=== PATIENT | male | born 1945 | race Caucasian/White ===

== ENCOUNTER 2025-05-02 07:32 | Outpatient (AMB) | payer MEDICARE, MEDICAID, SELFPAY ==
[2025-05-02 07:35] VITALS: BMI 27.6
--- NOTE | 2025-05-02 07:35 | A.PHYSOV ---
Vital Signs 05/02/25 07:35 Height 5 ft 5 in Weight 166 lb BMI 27.6 Intake Visit Reasons: Follow up after injection 01/20/25 Intake Note: Patient is a 79 year old male in office today for a follow up after L5-S1 Interlaminar epidural injection 01/20/25. [place] Required: No Allergies No Known Allergies Allergy (Verified 05/02/25 07:38) HPI Comments Details: History of Present Illness The patient is a 79 year old male presenting for a follow-up visit for chronic lower back pain and bilateral lumbar radiculitis. He has been responding to lumbar epidural injections, with his most recent being an L5-S1 injection on January 20, 2025. He previously experienced 70% improvement with these injections and this has been pretty consistent response. Pain has been slowly returning. He is ready for another injection. Pain continues to be reported with standing and reduced with sitting down. He ambulates with a single-point cane. He reports positive shopping cart? sign. A lumbar sacral spine MRI from July 30, 2021, revealed various degrees of neuroforaminal stenosis with associated nerve root compression. The most pertinent findings were compression of the right L4 nerve root and the left L5 nerve root at the L5-S1 level. The patient's medication history includes daily aspirin. Pain Description - Location: Lower back. - Radiation: Bilateral lumbar radiculitis is reported. Results - Lumbar Sacral Spine MRI (July 30, 2021): Showed various degrees of neuroforaminal stenosis with associated nerve root compression, including compression of the right L4 nerve root and the left L5 nerve root at the L5-S1 level. [facility] Medical History (Updated 05/02/25 @ 07:46 by Jose A Mccabe DO) Lumbar radiculitis Spinal stenosis, lumbar region with neurogenic claudication Surgical History History of back surgery S/P CABG x 3 Social History Alcohol intake: current Alcohol intake frequency: holidays/special occasions only Patient Tobacco Use Status: Never used Tobacco Review of Systems Narrative Review of Systems - Musculoskeletal: Reports chronic lower back pain with bilateral radiculopathy. Denies change in bowel bladder habits. Denies fever or chills. Denies uncontrolled depression or suicidal ideation. Denies progressive weakness. Physical Exam Exam Exam: Physical Exam Patient appears to be in no acute distress. He ambulated without antalgia. Heel walk and toe walk were not tested. He ambulates with a single-point cane. Neurological examination reveals mild weakness of the right EHL. Patient demonstrated no upper motor neuron signs. Lumbar range of motion was severely restricted in extension. Vital Signs: BMI result Body Mass Index 27.6 Assessment & Plan Assessment & Plan (1) Spinal stenosis, lumbar region with neurogenic claudication: Code(s): M48.062 - Spinal stenosis, lumbar region with neurogenic claudication Category: Medical (2) Lumbar radiculitis: Code(s): M54.16 - Radiculopathy, lumbar region Category: Medical Plan Pain Management - Analgesia: The patient notes that lumbar epidural injections help for a while and has previously reported 70% improvement from them. - The patient uses aspirin daily but denies use of ibuprofen. Plan Patient was informed and verbally consented to the use of an ambient scribe for clinic note documentation during this visit. 1. Chronic Lower Back Pain With Lumbar Radiculitis The patient reports temporary relief from lumbar epidural injections, and he has previously had a 70% improvement. Given his positive response, a repeat L5-S1 epidural injection will be scheduled. The patient takes daily aspirin and will need to discontinue it for at least seven days prior to the procedure. The procedure will be scheduled after the , and office staff will contact the patient to arrange the appointment. Discussion Notes I discussed the patient's response to his most recent L5-S1 epidural injection from January 20, 2025, and he reported that it provides temporary relief. Based on his history of positive response, including a prior 70% improvement, we will proceed with a repeat L5-S1 epidural injection. I advised the patient that he must stop taking his daily aspirin for at least seven days before the procedure. Due to the hold on aspirin and the upcoming holidays, we agreed to schedule the procedure after the . I informed the patient that my staff will call him to schedule the appointment. Patient Instructions - You will be scheduled for another epidural injection in your lower back (L5-S1). - You must stop taking your aspirin for at least 7 days before the procedure. - Our office will call you to schedule this procedure for a date after the New Year. Coding Level of Care Code Est Pt Level 4 (23839) Add On Problem Visit Only Diagnoses Spinal stenosis, lumbar region with neurogenic claudication M48.062 Lumbar radiculitis M54.16
--- OUTSIDE RECORDS SUMMARY | 2025-05-02 07:35 | XMS_ITS ---
Author Name [facility] Organization Unknown Care Team Organization Name Specialty Phone Email Start Date End Da te [facility] 01/03/2025 [facility] Pino Gibbons [facility] 09/21/2022 01/03/20 [facility] Hugo Marquez Primary [facility] 07/22/2022 01/03/2024 [facility] Gilberto Dior Primary [facility] 03/24/202212/15
--- OUTSIDE RECORDS SUMMARY | 2025-05-02 07:35 | XMS_ITS | Clinical Summary ---
Author Organization [facility] [address] [facility] [address] Address [address] [place] [address] Phone Care Team Providers Care Journeyman Pressman Name Role Phone Osman Marquez MD Primary Care Provider [phone] Allergies No known active allergies Medications MEN'S MULTI-VITAMIN ORAL Take 1 tablet by mouth 1 (one) time each day. Active omeprazole magnesium (PRILOSEC OTC ORAL) Take 1 tablet by mouth 1 (one) time each day. Active acetaminophen (TYLENOL) 325 mg tablet Take 2 tablets (650 mg total) by mouth every 6 (six) hours if needed. Active aspirin 81 mg EC tablet Take 1 tablet (81 mg total) by mouth 1 (one) time each day. Active sacubitriL-valsa rtan (Entresto) 49-51 mg per tablet Take 1 tablet by mouth 2 (two) times a day. Dose increased Active furosemide (LASIX) 20 mg tabletIndication s:Heart failure with mildly reduced ejection fraction (CMS/HCC V24, CMS/HCC V28) TAKE 1 TABLET (20 MG TOTAL) BY MOUTH ONE TIME EACH DAY 90 tablet 3 5 Active citalopram (CeleXA) 20 mg tablet TAKE 1 TABLET BY MOUTH EVERY DAY 90 tablet 5 Active spironolactone (ALDACTONE) 25 mg tabletIndication s:Ischemic cardiomyopathy,A bnormal findings on diagnostic imaging of heart and coronary circulation TAKE 1 TABLET BY MOUTH EVERY DAY 90 tablet 2 5 Active atorvastatin (LIPITOR) 80 mg tablet TAKE 1 TABLET BY MOUTH 1 TIME EACH DAY. 90 tablet Active Active Problems Problem Noted Date Diagnosed Date Bifascicular block 11/07/2024 RIVAS (dyspnea on exertion) 11/07/2024 Lightheadedness 06/15/2024 Assessment & Plan (06/15/2024 8:30 AM EST): As above; should this continue despite improvement in his blood pressures, we may entertain the idea of repeat ambulatory monitoring to evaluate for any worsening underlying conduction disease. History of coronary artery bypass graft x 3 05/19 Assessment & Plan (06/15/2024 8:30 AM EST): AV block 06/15/2024 Assessment & Plan (06/15/2024 8:30 AM EST): 24-hour Holter completed 03/12/2023 showed a first-degree AV block with variable AV block and some high-grade AV block causing a 4.4-second pause after 4 P waves and a rope for blocked; the patient was sleeping at this time. He was subsequently diagnosed with sleep apnea and remains compliant with CPAP. He has been noting intermittent episodes of lightheadedness; however, his blood pressure is on the borderline low side. We are adjusting medical therapies as above; however, should this continue we may entertain the idea of repeat ambulatory monitoring for further evaluation of worsening conduction disease. Heart failure with mildly reduced ejection fract ion 02/24/2024 Overview (02/28/2024): Last Assessment & Plan: The patient has a history of coronary artery disease status post CABG in 2017 with improved EF from 30 to 35% in 2017 to 50 to 60% in 2019. The patient had an echocardiogram completed in 2021 showing an EF of 40%. His most recent echocardiogram dated 09/28/2023 appears unchanged from previous despite the addition and titration of GDMT for heart failure. Given the lack of change, he was sent for a repeat ischemic workup which revealed known infarct without ischemia. He presents today with stage C heart failure and ongoing NYHA class II symptoms. He appears mildly fluid overloaded on exam today with positive JVD and HJR as well as mild ankle edema and left lower lobe crackles. We discussed the addition of short-term furosemide which she is amenable to; he will take furosemide 20 mg once daily for the next 3 days, calling us at the conclusion of the 3 days to let us know how he is feeling. He will update a metabolic panel in approximately 5-7 days. In retrospect, he does admit to occasional abdominal bloating which he had not thought much of. We discussed the signs and symptoms of worsening heart failure and he verbalizes understanding of this. In line with guideline directed medical therapy for heart failure, continue Entresto and spironolactone. Beta-blockade was previously stopped due to his underlying conduction disease. Once he completes furosemide x 3 days and repeat laboratories, we will readdress further titration of GDMT for heart failure. I've asked the patient to call if they develop worsening symptoms of heart failure such as increased shortness of breath, new or worsening cough, increased swelling in the legs or ankles, or weight gain of more than 2 pounds in one day or 4 pounds in one week. Assessment & Plan (06/15/2024 8:30 AM EST): The patient's most recent echocardiogram was completed in September 2023 revealing a modest but noticeable improvement in contractility from previous, EF 40 to 45%. It had been as low as 30 to 35% at the time of his CABG with improvement to approximately 40% prior to September 2023. GDMT for heart failure has been titrated to maximally tolerated therapies, including Entresto and spironolactone; beta-blockade was previously discontinued due to his conduction disease. However, he does report today that he has been having episodes of intermittent lightheadedness and his blood pressure is noted to be 100/60 today. He has been intermittently taking furosemide for his shortness of breath and abdominal bloating which he does feel helps some; he does have bibasilar crackles on exam today but no peripheral edema or abdominal bloating. After a long discussion, we will cut back on his Entresto from 49-51 mg daily to 24-26 mg twice daily to allow more blood pressure support to add furosemide 20 mg daily. He was provided with samples of the Entresto 24-26 mg today while in office. Should he experience continued episodes of lightheadedness or dizziness, he will notify the office at which time we will readdress this. We will also continue spironolactone. We will plan to update a basic metabolic panel in approximately 1 to 2 weeks and I will touch base with him after that to see how he is doing; he will call sooner for any new or worsening symptoms. Orders: furosemide (LASIX) 20 mg tablet; Take 1 tablet (20 mg total) by mouth 1 (one) time each day. Basic metabolic panel; Future sacubitriL-valsartan (ENTRESTO) 24-26 mg per tablet; Take 1 tablet by mouth 2 (two) times a day. Magnesium; Future KALA (obstructive sleep apnea) 07/30/2023 Overview (09/26/2024): 07/10. Moderate 10/08 Continue with CPAP regularly. Assessment & Plan (06/15/2024 8:30 AM EST): Continued compliance with CPAP was encouraged. 1st degree AV block 03/01/2023 Right bundle branch block 03/01/2023 Sinus arrhythmia 03/01/2023 Overview (02/28/2024): Last Assessment & Plan: The patient's EKG remains relatively unchanged today showing sinus arrhythmia with first-degree AV block and right bundle branch block with a rate of [address] Flores had stopped the patient's metoprolol given his conduction abnormalities. With his history of ischemic cardiomyopathy and his continued reduction in ejection fraction, it would be helpful to obtain a Holter monitor to see how slow the patient's heart rate is going and to evaluate the rhythm over period of time in the hopes that we may be able to restart beta-blockade with carvedilol. The patient is amenable to this. Once we review the results of the Holter we will make further changes as appropriate. Spinal stenosis of lumbar region 01/18/2020 Overview (02/28/2024): LUmbar decompression L3-4. 10/05 Last Assessment & Plan: Patient is 3 weeks s/p right L3-4 decompression, he states his right leg feels much better, occasionally he will have some numbness tingling, the right leg feels stronger than before surgery. He denies any wound drainage, sweats chills, fever, bowel bladder issues. He has been active and ambulating. He uses his cane for security when he has to go out for appointments or errands, or first thing when getting out of bed, otherwise is able to ambulate around the house without it. Mr. Negrete is doing well postop, all questions answered. He is not requiring any pain meds, no refills needed. He can follow-up as needed, I asked him to call in 4 to 6 weeks for a second postop appointment if he still has any symptoms. 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 No change Last Assessment & Plan: No significant change noted on echocardiogram completed 09/2023. We will continue to monitor this with serial echocardiograms. Cardiomyopathy 07/08/2017 Overview (02/28/2024): Echo 08/2016 EF 30-35% Echo 10/02 50-60% Last Assessment & Plan: The patient has a history of coronary artery disease status post CABG in 2016 with improved EF from 30 to 35% in 2017 to 50 to 60% in 2019. The patient had an echocardiogram completed in 2021 showing an EF of 40%. His most recent echocardiogram dated 02/25/2023 appears unchanged and reveals global hypokinesis of the left ventricle worse in the septum, akinesis at the base of the inferior wall and inferior septum, EF approximately 40%, right ventricle is dilated and moderately hypokinetic, mildly dilated left atrium. No significant valvular abnormality. Since last visit with Dr. Flores in January 2022, he was started on spironolactone. This does not seem to have made much difference for the patient in terms of his cardiomyopathy; presents today with stage C heart failure with NYHA class II symptoms. He does however appear well compensated, as he denies any other symptoms of heart failure or ischemia besides his ongoing and stable shortness of breath with exertion. Is willing to proceed with a nuclear stress test as previously ordered by Dr. Flores, and this has been reordered today. We will start Entresto at mid range, up sequently he will stop his valsartan. He will monitor his blood pressures at home, and return to care in 1 week for blood pressure check with nursing at which time he will bring his home blood pressure cuff with him for correlation as well. We will check labs in 1 week; given that he is on spironolactone there is concern for hyperkalemia with the start of Entresto. We will continue to readdress the plan at that time. He was encouraged to call for any questions or concerns in the interim. At this time we will continue with daily baby aspirin, statin, and spironolactone. I have reviewed with the patient the importance of a heart healthy lifestyle which includes eating a low-fat low-salt diet, getting regular exercise, maintaining a healthy weight, not smoking, and following up with routine medical care. Patient advised to seek emergency medical attention by calling 911 if they were to develop severe dyspnea, chest pain that did not resolve with rest or nitroglycerin, or if they were to faint. I've asked the patient to call if they develop worsening symptoms of heart failure such as increased shortness of breath, new or worsening cough, increased swelling in the legs or ankles, or weight gain of more than 2 pounds in one day or 4 pounds in one week. Assessment & Plan (06/15/2024 8:30 AM EST): As above. GERD (gastroesophageal reflux disease) 8 Hypercholesteremia 10/05/2016 Overview (02/28/2024): Last Assessment & Plan: LDL goal for this patient has a history of coronary artery disease is less than 70. His most recent lipid panel was completed 01/04/2024 revealing an LDL of 60. Continue atorvastatin. Assessment & Plan (06/15/2024 8:30 AM EST): Patient's most recent lipid panel was completed 12/2023 showing an LDL of 60 which is at goal of less than 70 for this patient who has a history of coronary artery disease. Continue atorvastatin 80 mg daily. CAD (coronary artery disease) 09/26/2016 Overview (02/28/2024): CABG x 3. 08/31. EF 30% 10/07. EF 40-45% Last Assessment & Plan: The patient presents today reporting that his shortness of breath is at his typical baseline; he offers no other symptoms concerning for ischemia. His last ischemic workup was completed in March 2023 which revealed a medium size infarct without significant ischemia. We will not make any changes to his cardioprotective medical therapy; continue ASA and statin therapy. Patient advised to seek emergency medical attention by calling 911 if they were to develop severe dyspnea, chest pain that did not resolve with rest, or if they were to faint. Assessment & Plan (06/15/2024 8:30 AM EST): He is status post CABG x 3 in August 2016. His most recent echocardiogram from 09/2023 showed an area at the base of the inferior wall and inferior septum that has been consistently hypokinetic over the course of several years. He had a stress test in March 2023 with results consistent with this finding; no significant ischemia. The patient typically remains quite active on a regular basis, more so in the warmer months. He reports that his shortness of breath is at baseline and he offers no other symptoms to cause concern for underlying ischemia. We will not make any changes to his cardioprotective medical therapies; continue atorvastatin and aspirin. As above, beta-blockade previously stopped due to underlying conduction disease. Diverticulosis 07/02/2011 Overview (02/28/2024): Incidental finding at colonoscopy 07/02/2011. Depression 08/21/2009 Overview (02/28/2024): Celexa started in 2004 Hypertension 09/14/2008 Overview (02/28/2024): Last Assessment & Plan: Blood pressure is well-controlled on current medical therapy; continue spironolactone and Entresto. We will update labs as above. Assessment & Plan (06/15/2024 8:30 AM EST): Blood pressure is borderline low today and he has been having episodes of intermittent lightheadedness; we are addressing this as above with decreased dose of Entresto but also with the addition of furosemide. He will continue decreased dose of Entresto and spironolactone with the addition of furosemide. We will update a metabolic panel and magnesium level in 1 to 2 weeks and continue to readdress this as needed. Orders: Basic metabolic panel; Future Magnesium; Future Prostate nodule 09/14/2008 Overview (02/28/2024): Dr. Cole, Dr. Paul - follows his PSA Biopsy - 2006 - negative Resolved Problems Problem Noted Date Diagnosed Date Resolved Date COVID 05/20/2021 09/02/2024 Encounters Date Type Department Care Team Description 04/09/2025 Telephone Adult Medicine - [address] [address] [place] Andre[place]elle [place] 04/04/2025 10:45 AM EST Lab Draw Station - [address] [address] Coronary artery disease involving newtok coronary artery of newtok heart without angina pectoris; Hypercholesteremia 04/04/2025 10:30 AM EST Office Visit Adult Medicine - [address] [phone] Osman Marquez MD Primary hypertension (Primary Dx); Coronary artery disease involving newtok coronary artery of newtok heart without angina pectoris; KALA (obstructive sleep apnea); Hypercholesteremia; Depression, unspecified depression type 02/21/2025 10:00 AM EDT Ancillary Procedure [facility] - [address] [place] [address] Cardiomyopathy, unspecified type (CMS/HCC V24, CMS/HCC V28); Ischemic cardiomyopathy; Coronary artery disease involving newtok coronary artery of newtok heart without angina pectoris; KALA (obstructive sleep apnea); History of coronary artery bypass graft x 3; Bifascicular block; RIVAS (dyspnea on exertion) from Last 3 Months Immunizations Immunization Administration Dates Next Due Influenza trivalent, 0.5mL ( Fluad) 65yo and older 02/24/2022,02/26/2019,02/14/2018,02/16,02/03/2016 Influenza trivalent, 0.5mL, preservative free (Fluarix; FluLaval; Fluzone) ages 6mo and older (Afluria) 3 years and older 02/14/2020,04/27/2012,02/27/2011 Influenza, Unspecified 03/18/2015,03/15/2013 SocialPicks SARS-CoV-2 COVID-19, mRNA, LNP-S, preservative free 09/24/2020,09/03/2020 Pneumococcal conjugate 13 va lent (Prevnar 13, PCV13) 2mo and older 06/10/2017 Pneumococcal polysaccharide 23 valent (Pneumovax 23) 2yo and older 10/23/2011 Td Tetanus diptheria (Tdvax) 7yo and older 07/01/2023 Tdap Tetanus diptheria acell ular pertussis (Boostrix; Adacel) 7yo and older 10/26/2012 Surgical History Surgery Date Site/Laterality Comments TONSILLECTOMY as child PROCEDURE: HISTORICAL TONSILLECTOMY HERNIA REPAIR PROCEDURE: HISTORICAL HERNIA REPAIR/ING; COMMENT: bilaterally OTHER SURGICAL HISTORY 2010 PROCEDURE: RADIOLOGIC EXAM COLON SINGLE CONTRAST STUDY; COMMENT: diverticulosis CORONARY ARTERY BYPASS GRAFT 08/2016 PROCEDURE: HISTORICAL CABG COLONOSCOPY 2010 PROCEDURE: HISTORICAL COLONOSCOPY; COMMENT: negative/incomplete COLONOSCOPY 07/02/2011 PROCEDURE: HISTORICAL COLONOSCOPY; COMMENT: diverticulosis; no polyps COLONOSCOPY 07/01/2017 PROCEDURE: HISTORICAL COLONOSCOPY; COMMENT: [facility]; 12 mm TA and 5 mm SSA; next exam in 3 yrs. OTHER SURGICAL HISTORY PROCEDURE: HISTORICAL MELANOMA LUMBAR LAMINECTOMY 10/10/2021 PROCEDURE: HISTORICAL LUMB LAMINECTOMY; COMMENT: Right L3-4 decompression, Dr. Smith Medical History Medical History Date Comments Personal history of colonic polyps 07/02/2011 DX:Personal history of colonic polyps Diverticulosis 07/02/2011 DX:Diverticulosi s; COMMENT: Incidental finding at colonoscopy 07/02/2011. Cardiomyopathy (CMS/HCC V24, CMS/HCC V28) 018 DX:Cardiomyopathy (HCC); COMMENT: Echo 08/2016 EF 30-35% Actinic keratosis 10/11/2009 DX:Actinic ker atosis; COMMENT: Actinic keratosis 09/23 left orbital rim (hypertrophic) CAD (coronary artery disease) 09/26/2016 DX :CAD (coronary artery disease); COMMENT: CABG x 3. 4/17. EF 30% Depression 08/21/2009 DX:Depression; C OMMENT: Celexa started in 2004 History of basal cell carcinoma 08/21/2009 DX:History of basal cell carcinoma History of dysplastic nevus 01/31/2016 DX:H istory of dysplastic nevus; COMMENT: Dysplastic nevus 12/27 right foot (mild atypia) Hypercholesteremia 10/05/2016 DX:Hyperchole steremia Hypertension 09/14/2008 DX:Hypertension Prostate nodule 09/14/2008 DX:Prostate nodu le; COMMENT: Dr. Cole, Dr. Paul - follows his PSA Biopsy - 2006 - negative Scoliosis 10/23/2011 DX:Scoliosis GERD (gastroesophageal reflux disease) 07/08/2017 DX:GERD (gastroesophageal reflux disease) History of actinic keratoses 10/11/2009 DX: History of actinic keratoses; COMMENT: Actinic keratosis 09/23 left orbital rim (hypertrophic) Family History Medical History Relation Name Comments No Known Problems Daughter No Known Problems Son 1 No Known Problems Son 2 No Known Problems Son 3 Relation Name Status Comments Daughter Alive Father pt. adopted Mother pt. adopted Son 1 Alive Son 2 Alive Son 3 Alive Social History Tobacco Use Types Packs/Day Years Used Date Smoking Tobacco: Never Smokeless Tobacco: Never Tobacco Cessation:Counseling Given: Not Answered Alcohol Use Standard Drinks/Week Comments Yes 2 (1 standard drink = 0.6 oz pur e alcohol) Housing Instability Answer Date Recorde d Are you worried that in the next 2 months you may not have stable housing? No 10/13/2024 Food Access & Nutrition Answer Date Rec orded Do you have access to a vari ety of food including fruits and vegetables? Yes 10/13/2024 Access to Healthcare Answer Date Record ed Within the last 3 months, ho w many times did you visit the emergency department for your medical care? 0 10/13/2024 Health Literacy Answer Date Recorded How often do you need to hav e someone help you when you read instructions, pamphlets, or other written material from your doctor or pharmacy? Never 10/13/2024 Caregiver: How often do you need to have someone help you when you read instructions, pamphlets, or other written material from your doctor or pharmacy? Not on file 10/13/2024 Financial Risk Answer Date Recorded How hard is it for you to pa y for the very basics like food, housing, medical care, and air conditioning / heating? Not very hard 10/13/2024 Transportation Answer Date Recorded Has the lack of transportati on kept you from meetings, work, or from getting things needed for daily living? No Has the lack of transportati on kept you from medical appointments or from getting medications? No 10/13/2024 Social Isolation Answer Date Recorded How often do you feel lonely or isolated from th ose around you? Never 10/13/2024 Food Risk Answer Date Recorded Within the past 12 months we worried whether our food would run out before we got money to buy more. Never true 10/13/2024 Within the past 12 months th e food we bought just didn't last and we didn't have money to get more. Never true 10/13/2024 Dependent Care Answer Date Recorded Do you need help finding or paying for care for your loved ones. For example, early childhood director or elderly care for an older adult? No 10/13/2024 Education Answer Date Recorded Do you think completing more education or training, like finishing a GED, going to college, or learning a trade, would be helpful for you? N/A 10/13/2024 Employment and Income Answer Date Recor ded During the last four weeks, have you been actively looking for work? No 10/13/2024 Living Situation Answer Date Recorded What is your living situation? Unrecognized valu e 10/13/2024 Sex and Gender Information Value Date Recorded Sex Assigned at Not on file Legal Sex Male 4:43 AM EST Gender Identity Not on file Sexual Orientation Not on file Occupation Industry Job Start Date Job End Date RETIRED Not on file Not on file Not on file Last Filed Vital Signs Vital Sign Reading Time Taken Comments Blood Pressure 121/64 04/04/2025 10:23 AM EST Pulse 96 04/04/2025 10:23 AM EST Temperature 36.7 C (98 F) 04/04/2025 10:23 AM EST Respiratory Rate - - Oxygen Saturation 95% 11/07/2024 9:45 AM EDT Inhaled Oxygen Concentration - - Weight 78.6 kg (173 lb 3.2 oz) 04/04/2025 10:23 AM EST Height 165.1 cm (5' 5 ) 04/04/2025 10:23 AM EST Body Mass Index 28.82 04/04/2025 10:23 AM EST Plan of Treatment Health Maintenance Due Date Last Done Comments COVID-19 Vaccine (3 - Pfizer risk series) 10/22/2020 09/24/2020, 09/03/2020 RSV Immunization Adult Patients (1 - 1-dose 75+ series) 2021 Colorectal Cancer Screening: Stool Based Tests (FOBT/FIT) 04/25/2022 Influenza Vaccine (#1) 2025 , 02/14/2020, 02/26/2019, Additional history exists Zoster Vaccines (2 of 2) 03/09/2025 01/12/2025 Falls Risk Assessment 10/13/2025 10/13/2024, 023 Medicare Annual Wellness Visit 10/13/2025 10/13/2024 Social Influencers of Health Screening 10/13/2025 10/13/2024 Hypertension/CHF/CAD Annual BMP Blood Test 04/04/2026 04/04/2025, 09/11/2024, 06/26/2024, Additional history exists Cholesterol Screening (Lipid Panel) 04/04/2030 04/04/2025, 09/11/2024, 01/04/2024, Additional history exists DTaP,Tdap,and Td Vaccines (4 - Td or Tdap) 07/01/2033 07/01/2023, 10/26/2012, 11/30/2005 Hepatitis C Screening Completed 06/10/2017 Pneumococcal Vaccine: 50+ Years Completed 06/10/2017, 10/23/2011 Colorectal Cancer Screening: Colonoscopy Discontinued 07/02/2022 Depression Screening Completed 10/13/2024, 07/07/19 24 HIB Vaccines Aged Out No longer eligi ble based on patient's age to complete this topic HPV Vaccines Aged Out No longer eligi ble based on patient's age to complete this topic Hepatitis A Vaccines Aged Out No long er eligible based on patient's age to complete this topic Hepatitis B Vaccines Aged Out No long er eligible based on patient's age to complete this topic IPV Vaccines Aged Out No longer eligi ble based on patient's age to complete this topic MMR Vaccines Aged Out No longer eligi ble based on patient's age to complete this topic Meningococcal ACWY Vaccine Aged Out N o longer eligible based on patient's age to complete this topic Meningococcal B Vaccine Aged Out No l onger eligible based on patient's age to complete this topic RSV Immunization Patients Under 20 months Aged Out No longer eligible based on patient's age to complete this topic Varicella Vaccines Aged Out No longer eligible based on patient's age to complete this topic Procedures Procedure Name Priority Date/Time Associated Diagnosis Comments CBC WITH AUTO DIFFERENTIAL Routine 04/04/2025 10:36 AM EST Coronary artery disease involving newtok coronary artery of newtok heart without angina pectoris LIPID PANEL WITH REFLEX TO DIRECT LDL Routine 04/04/2025 10:36 AM EST Hypercholesteremia COMPREHENSIVE METABOLIC PANEL Routine 04/04/2025 10:36 AM EST Hypercholesteremia Coronary artery disease involving newtok coronary artery of [place] heart without angina pectoris CBC AND DIFFERENTIAL Routine 04/04/2025 10:36 AM EST Coronary artery disease involving [place] coronary artery of [place] heart without angina pectoris TRANSTHORACIC ECHOCARDIOGRAM (TTE) COMPLETE W/ CONTRAST Routine 02/21/2025 1:12 PM EDT Cardiomyopathy, unspecified type (CMS/HCC V24, CMS/HCC V28) Ischemic cardiomyopathy Coronary artery disease involving [place] coronary artery of [place] heart without angina pectoris KALA (obstructive sleep apnea) History of coronary artery bypass graft x 3 Bifascicular block RIVAS (dyspnea on exertion) DEPRESSION SCREENING Routine 07/07/2023 FALLS RISK ASSESSMENT Routine 03/08/2023 COLONOSCOPY Routine 07/02/2022 HEPATITIS C SCREENING Routine 06/10/2017 from Last 3 Months or Most Recently Relevant to Health Maintenance Results * Lipid panel with reflex to direct LDL (04/04/2025 10:36 AM EST) Cholesterol 123 0 - 200 mg/dL 04/04/2025 4:11 PM EST [facility] Triglycerides 128 0 - 150 mg/dL 04/04/2025 4:11 PM EST [facility] HDL 56 >=40 mg/dL 04/04/2025 4:11 PM [facility] LDL Calculated 41 0 - 100 mg/dL 04/04/2025 4:11 PM [facility] Comment:Estimated LDL Calcul ated using equation: Total cholesterol - HDL cholesterol - (Triglycerides/5) VLDL Cholesterol Vinh 25.6 mg/dL 04/04/2025 4:11 PM [facility] Non HDL Chol. (LDL+VLDL) 67 <145 mg/dL 04/04/2025 4:11 PM [facility] Chol/HDL Ratio 2.2 0.0 - 4.4 04/04/2025 4:11 PM [facility] Blood Venous blood specimen / Unknown Venipuncture / Unknown 04/04/2025 10:36 AM EST 04/04/2025 10:36 AM EST us C Hunter Marquez MD LAB BLOOD ORDERABLES Final Res ult [facility] [address] [place] [address], [place] [phone] * (ABNORMAL) CBC auto differential (04/04/2025 10:36 AM EST) WBC 6.6 4.8 - 10.8 K/mcL LAB HEMETOLOGY METHOD 04/04/2025 11:43 AM [facility] RBC 4.20(L) 4.50 - 5.50 M/mcL LAB HEMETOLOGY METHOD 04/04/2025 11:43 AM [facility] Hemoglobin 13.5 13.5 - 17.5 g/dL LAB HEMETOLOGY METHOD 04/04/2025 11:43 AM [facility] Hematocrit 40.4(L) 42.0 - 54.0 % LAB HEMETOLOGY METHOD 04/04/2025 11:43 AM [facility] MCV 95.3 79.0 - 98.0 FL LAB HEMETOLOGY METHOD 04/04/2025 11:43 AM [facility] MCH 31.8 27.0 - 32.0 pcg LAB HEMETOLOGY METHOD 04/04/2025 11:43 AM [facility] MCHC 33.4 32.0 - 37.0 g/dL LAB HEMETOLOGY METHOD 04/04/2025 11:43 AM [facility] RDW 12.1 11.0 - 15.0 % LAB HEMETOLOGY METHOD 04/04/2025 11:43 AM [facility] Platelets 236 130 - 400 K/mcL LAB HEMETOLOGY METHOD 04/04/2025 11:43 AM [facility] MPV 11.3(H) 7.0 - 11.0 FL LAB HEMETOLOGY METHOD 04/04/2025 11:43 AM [facility] NRBC 0.0 <1.0 % LAB HEMETOLOGY METHOD 04/04/2025 11:43 AM [facility] NRBC Absolute 0.00 <0.10 K/mcL LAB HEMETOLOGY METHOD 04/04/2025 11:43 AM [facility] Neutrophils Relative 64.8 % LAB HEMETOLOGY METHOD 04/04/2025 11:43 AM [facility] Lymphocytes Relative 20.9 % LAB HEMETOLOGY METHOD 04/04/2025 11:43 AM [facility] Monocytes Relative 10.5 % LAB HEMETOLOGY METHOD 04/04/2025 11:43 AM [facility] Eosinophils Relative 2.7 % LAB HEMETOLOGY METHOD 04/04/2025 11:43 AM [facility] Basophils Relative 0.8 % LAB HEMETOLOGY METHOD 04/04/2025 11:43 AM [facility] Immature Granulocytes Relative 0.3 % LAB HEMETOLOGY METHOD 04/04/2025 11:43 AM [facility] Neutrophils Absolute 4.27 1.50 - 7.00 K/mcL LAB HEMETOLOGY METHOD 04/04/2025 11:43 AM [facility] Lymphocytes Absolute 1.38 1.00 - 5.00 K/mcL LAB HEMETOLOGY METHOD 04/04/2025 11:43 AM [facility] Monocytes Absolute 0.69 0.20 - 1.00 K/mcL LAB HEMETOLOGY METHOD 04/04/2025 11:43 AM [facility] Eosinophils Absolute 0.18 0.00 - 0.50 K/mcL LAB HEMETOLOGY METHOD 04/04/2025 11:43 AM [facility] Basophils Absolute 0.05 0.00 - 0.20 K/mcL LAB HEMETOLOGY METHOD 04/04/2025 11:43 AM [facility] Immature Granulocytes Absolute 0.02 0.00 - 0.03 K/mcL LAB HEMETOLOGY METHOD 04/04/2025 11:43 AM [facility] Blood Venous blood specimen / Unknown Venipuncture / Unknown 04/04/2025 10:36 AM EST 04/04/2025 10:36 AM EST us C Hunter Marquez MD LAB BLOOD ORDERABLES Final Res ult [facility] [address] [place] [address], * Comprehensive metabolic panel (04/04/2025 10:36 AM EST) Sodium 143 133 - 145 mmol/L 04/04/2025 4:11 PM EST [facility] Potassium 5.0 3.5 - 5.5 mmol/L 04/04/2025 4:11 PM [facility] Chloride 109 96 - 110 mmol/L 04/04/2025 4:11 PM [facility] CO2 24 21 - 32 mmol/L 04/04/2025 4:11 PM [facility] Anion Gap 10 3 - 11 04/04/2025 4:11 PM [facility] Glucose 82 70 - 100 mg/dL 04/04/2025 4:11 PM [facility] BUN 21 5 - 25 mg/dL 04/04/2025 4:11 PM [facility] Creatinine 1.21 0.70 - 1.30 mg/dL 04/04/2025 4:11 PM [facility] eGFR 61 >=60 mL/min/1. 73m2 04/04/2025 4:11 PM [facility] Comment:Calculation based on the Chronic Kidney Disease Epidemiology Collaboration (CKD-EPI) equation refit without adjustment for race. BUN/Creatinine Ratio 17.4 04/04/2025 4:11 PM [facility] Calcium 9.7 8.5 - 10.5 mg/dL 04/04/2025 4:11 PM [facility] AST (SGOT) 33 10 - 42 unit/L 04/04/2025 4:11 PM [facility] ALT (SGPT) 23 10 - 60 unit/L 04/04/2025 4:11 PM [facility] Alkaline Phosphatase 87 42 - 121 unit/L 04/04/2025 4:11 PM [facility] Total Protein 7.0 6.0 - 8.0 g/dL 04/04/2025 4:11 PM [facility] Albumin 4.6 3.2 - 5.0 g/dL 04/04/2025 4:11 PM EST [facility] Total Bilirubin 0.5 0.0 - 1.4 mg/dL 04/04/2025 4:11 PM EST [facility] Blood Venous blood specimen / Unknown Venipuncture / Unknown 04/04/2025 10:36 AM EST 04/04/2025 10:36 AM EST us C Hunter Marquez MD LAB BLOOD ORDERABLES Final Res ult [facility] [address] [place] [address], [place] [phone] * (ABNORMAL) TRANSTHORACIC ECHOCARDIOGRAM (TTE) COMPLETE W/ CONTRAST (02/21/2025 1:12 PM EDT) LV EDV (A2C) 97 mL CV PACS LV EDV (A4C) 103 mL CV PACS LV Diastolic Volume (BP) 101 62 - 150 mL CV PACS LV ESV (A2C) 53 mL CV PACS LV ESV (A4C) 56 mL CV PACS LV Systolic Volume (BP) 58 21 - 61 mL CV PACS IVSD 1.1(A) 0.6 - 1.0 cm CV PACS LVIDD 5.3 4.2 - 5.8 cm CV PACS LVIDS 4.0 2.5 - 4.0 cm CV PACS LVOT Diameter 2.2 cm CV PACS LVOT Mean Niko 0.4 m/s CV PACS LVOT Mean Grad 1 mmHg CV PACS LVOT Mean Grad 1 mmHg CV PACS LVOT Peak VTI 15.6 cm CV PACS LVOT Peak Niko 0.7 m/s CV PACS LVOT Peak Gradient 2 mmHg CV PACS LVPWD 1.1(A) 0.6 - 1.0 cm CV PACS MV E' Tissue Velocity Lateral 12 cm/s CV PACS MV E' Tissue Velocity Septal 5 cm/s CV PACS Ejection Fraction (A2C) 46 % CV PACS Ejection Fraction (A4C) 45 % CV PACS Ejection Fraction (BP) 43 % CV PACS LVOT Area 3.8 cm2 CV PACS LVOT Stroke Volume 59 mL CV PACS Left Atrium Minor New Era 6.1 cm CV PACS Left Atrium Major New Era 6.4 cm CV PACS LA Area Sys (A2C) 25 cm2 CV PACS LA Area Sys (A4C) 21 cm2 CV PACS LA Volume (BP) 71 mL CV PACS RA Area 21.8 cm2 CV PACS RA 2D Volume 66 mL CV PACS AV Mean Gradient 4 mmHg CV PACS AV Mean Gradient 4 mmHg CV PACS Ao VTI 29.0 cm CV PACS AV Peak Niko 1.5 m/s CV PACS AV Peak Gradient 9 mmHg CV PACS AV Area Continuity Equation 2.0 cm2 CV PACS AV Area Peak Velocity 1.9 cm2 CV PACS Aortic Arch 3.1 cm CV PACS Ascending Aorta 4.0 cm CV PACS Aortic Sinus Valsalva 3.7 cm CV PACS MV Deceleration Bacon 3.9 m/s2 CV PACS E Wave Deceleration Time 162 119 - 242 ms CV PACS MV PHT 48 ms CV PACS MV Peak A Niko 0.79 m/s CV PACS MV Peak E Niko 0.65 m/s CV PACS MV Mean Gradient 1 mmHg CV PACS MV Mean Gradient 1 mmHg CV PACS MV Mean Gradient 1 mmHg CV PACS MV Mean Gradient 1 mmHg CV PACS MV VTI 30.3 cm CV PACS Mitral Valve Max Velocity 0.8 m/s CV PACS MV Peak Gradient 3 mmHg CV PACS MV Area PHT 4.6 cm2 CV PACS MV Area Continuity Equation 2.0 cm2 CV PACS PV Acceleration Time 106 ms CV PACS PV Acceleration Time 120 ms CV PACS PV Acceleration Time 113 ms CV PACS PV Mean Gradient 1 mmHg CV PACS PV VTI 14.2 cm CV PACS PV Peak Velocity 0.7 m/s CV PACS PV Peak Gradient 2 mmHg CV PACS RV Diastolic Basal Dimension 4.5(A) 2.5 - 4.1 cm CV PACS RV S' 8 cm/s CV PACS TAPSE 14 mm CV PACS TR Peak Velocity 1.83 m/s CV PACS TR Peak Gradient 13 mmHg CV PACS LV ESV Index (A4C) 30 mL/m2 CV PACS LV EDV Index (A4C) 55 mL/m2 CV PACS E/E' Ratio Septal 13 CV PACS E/E' Ratio Averaged 9 CV PACS LVOT Stroke Index 32 mL/m2 CV PACS Relative Wall Thickness ratio 0.42 CV PACS LVOT:AV VTI Index 0.54 CV PACS FS 25 % CV PACS LV Mass 2D 228 g CV PACS Ascending Aorta Index 2.14 cm/m2 CV PACS MV VTI:LVOT VTI ratio 1.9 CV PACS LVOT flow 152 mL/s CV PACS RA 2D Volume Index 35 mL/m2 CV PACS GINA Index (VTI) 1.09 cm2/m2 CV PACS GINA Index (Pk Niko) 1.02 cm2/m2 CV PACS LVIDD Index 2.83 cm/m2 CV PACS LVIDS Index 2.14 cm/m2 CV PACS AV Velocity Ratio 0.47 CV PACS E/A Ratio 0.8 CV PACS E/E' Ratio Lateral 5 CV PACS LV Systolic Volume Index (BP) 31 mL/m2 CV PACS LV Diastolic Volume Index (BP) 54 mL/m2 CV PACS LA Volume Index (BP) 38 mL/m2 CV PACS LV Mass Index 2D 122 g/m2 CV PACS LV EDV Index (A2C) 52 mL/m2 CV PACS LV ESV Index (A2C) 28 mL/m2 CV PACS BSA 1.91 m2 CV PACS Right Ventricular Peak Systolic Pressure 16 mmHg CV PACS Est. RA Pressure 3 mmHg CV PACS Anatomical Region Laterality Modality Ultrasound Narrative 02/21/2025 3:00 PM EDT Left ventricle cavity size is normal. Left ventricular systolic function is mildly decreased with an ejection fraction of 40-45%. Mild global hypokinesis. Borderline LVH. Indeterminate parameters of diastolic function. Right ventricle is enlarged. Right ventricular systolic function is mildly reduced. 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 There is no significant valvular disease. Both atria are mildly dilated. No significant change from September 28, 2023. Left Ventricle Left ventricle cavity size is normal. There is mild concentric hypertrophy. Systolic function is mildly decreased with an ejection fraction of 40-45%. Mild global LV hypokinesis is present. Indeterminate diastolic function. Right Ventricle Right ventricle cavity is dilated. Systolic function is mildly reduced. Left Atrium Left atrium cavity is mildly dilated. Right Atrium Right atrium cavity is mildly dilated. IVC/SVC Inferior vena cava structure is normal. RA pressures is estimated to be 3 mmHg (IVC diameter <21 mm and decreases >50% during inspiration). Mitral Valve The leaflets are mildly thickened. There is mild annular calcification. There is trace regurgitation. There is no evidence of mitral valve stenosis. Tricuspid Valve Tricuspid valve structure is normal. There is trace regurgitation. There is no evidence of tricuspid valve stenosis. The right ventricular systolic pressure is normal. Aortic Valve The aortic valve is trileaflet. The leaflets are mildly thickened. There is no regurgitation or stenosis. Pulmonic Valve There is trace pulmonic valve regurgitation. There is no evidence of pulmonic valve stenosis. Ascending Aorta Measurements of the ascending aorta ranged from 4.0-4.4 cm. Pericardium Pericardium appears normal. There is no pericardial effusion. Study Details Overall the study quality was suboptimal. Definity contrast was given to enhance imaging. Result [facility] Clovis Flores MD CV ECHO PROCEDURES Final Result * Depression Screening (07/07/2023) [facility] Depression Screening Abstracted Result [facility] HEALTH MAINTENANCE Final Result * Falls Risk Assessment (03/08/2023) [facility] Falls Risk Assessment Abstracted Result [facility] HEALTH MAINTENANCE Final Result * Colonoscopy (07/02/2022) [facility] Colonoscopy No interpretation , abstracted Anatomical Region Laterality Modality Other Result [facility] HEALTH MAINTENANCE Final Result * Hepatitis C Screening (06/10/2017) 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
== END 2025-05-02 07:50 | disposition home or self-care (01) ==
LOC: HO.HPHYS 07:33
PROVIDERS: PCP Pediatrics; Visit Provider Physical Medicine & Rehabilitation
DX: M48.062 Spinal stenosis, lumbar region with neurogenic claudication (principal); M54.16 Radiculopathy, lumbar region
CPT/HCPCS: 99214; G2211

== ENCOUNTER → 2025-05-02 07:32 | Outpatient (BNVA) | payer MEDICARE, MEDICAID, SELFPAY | PROVIDERS: PCP Pediatrics; Visit Provider Physical Medicine & Rehabilitation | DX: M54.16 Radiculopathy, lumbar region (principal); M48.062 Spinal stenosis, lumbar region with neurogenic claudication; G89.29 Other chronic pain; Z98.890 Other specified postprocedural states | CPT/HCPCS: 99212 ==